=== PATIENT | male | born 1970 | race Caucasian/White ===

== ENCOUNTER 2019-07-21 19:17 | Emergency (ER) | payer OTHER ==
[2019-07-21 19:31] VITALS: BP 120/82; PULSE 91; TEMP 97.9; BMI 35.7
[2019-07-21] MEDS ORDERED: ACETAMINOPHEN 325 MG TABLET (FP) PO ONE (19:50)
[2019-07-21] MEDS ORDERED: DIPHTH,PERTUSS(ACELL),TET 0.5 ML DISP.SYRIN IM ONE ×2 (20:08→20:38)
--- NOTE | 2019-07-21 20:45 | PDOC ---
History of Present Illness - General Chief Complaint: Injury Stated Complaint: LAC Time Seen by Provider: 07/21/19 19:50 History Source: Patient - History of Present Illness Initial Comments: 07/21/19 21:05 Chief complaint: Finger laceration Patient 48-year-old male no medical problems who cut his right little finger with a mandolin. Patient does not know when his last tetanus was. Patient is not on any anticoagulation or any antiplatelet medication. GENERAL/CONSTITUTIONAL: No fever, weakness. dizziness HEAD, EYES, EARS, NOSE AND THROAT: No change in vision. No ear pain or discharge. No sore throat. CARDIOVASCULAR: No chest pain RESPIRATORY: No shortness of breath or cough GASTROINTESTINAL: No pain, nausea, vomiting, diarrhea or constipation GENITOURINARY: No dysuria MUSCULOSKELETAL: No neck or back pain SKIN: No rash, + finger laceration NEUROLOGIC: No headache, vertigo, loss of consciousness, or loss of sensation. GENERAL: The patient is awake, alert, and fully oriented, in no acute distress. HEAD: Normal with no signs of trauma. EYES: Pupils equal, round and reactive to light, sclera anicteric, conjunctiva clear. ENT: pharynx: no erythema, no exudate, uvula midline NECK: supple CHEST: No respiratory distress EXTREMITIES: Right little finger with skin avulsed on the distal phalanx on the outer aspect, not involving the joint, able to flex and extend, not involving the nail. Neurovascular intact. Rest of extremities, normal range of motion, no edema. NEUROLOGICAL: Normal speech, normal gait. SKIN: Warm, Dry Past History - Past Medical History Allergies/Adverse Reactions: Allergies Allergy/AdvReac Type Severity Reaction Status Date / Time ciprofloxacin [From Cipro] Allergy Verified 07/21/19 19:53 COPD: No HTN: Yes Hypercholesterolemia: Yes - Immunization History Td Vaccination: (UNKNOWN) Immunization Up to Date: No - Psycho Social/Smoking Cessation Hx Smoking History: Never smoked Hx Alcohol Use: No Drug/Substance Use Hx: No *Physical Exam - Vital Signs Last Vital Signs Temp Pulse Resp BP Pulse Ox 97.9 F 91 H 20 120/82 98 07/21/19 19:29 07/21/19 19:29 07/21/19 19:29 07/21/19 19:29 07/21/19 19:29 ED Treatment Course - Medications Given in the ED: ED Medications Discontinued Medications Generic Name Dose Route Start Last Admin Trade Name Little PRN Reason Stop Dose Admin Acetaminophen 650 mg 07/21/19 19:50 07/21/19 20:39 Tylenol - PO 07/21/19 19:51 650 mg ONCE ONE Administration Diphtheria/Tetanus/Acell Pertussis 0.5 ml 07/21/19 20:08 07/21/19 20:39 Boostrix - IM 07/21/19 20:09 0.5 ml .ONCE ONE Administration Medical Decision Making - Medical Decision Making 07/21/19 21:08 48-year-old male who avulsed skin from his right little finger using a mandolin. Not deep enough to involve the bone, superficial but bleeding. Not involving the joint or the nail. Wound cleaned, Surgicel applied, pressure applied and observed. Hemostasis achieved. Wound was wrapped and given instructions on how to take care of it at home. Recommended following up with hand surgeon for further evaluation if graft might be needed. Patient is a [facility] patient he will follow-up with [facility] and surgeon. Patient also needs tetanus update and will give Tylenol for pain Discussed issues, findings, results, applicable medications and treatments and follow-up. All these were understood and all questions were answered Discharge - Discharge Information Problems reviewed: Yes Clinical Impression/Diagnosis: Finger avulsion Qualifiers: Encounter type: initial encounter Qualified Code(s): S61.209A - Unspecified open wound of unspecified finger without damage to nail, initial encounter Condition: Stable Disposition: HOME - Admission No - Follow up/Referral Referrals: Prabhakar Arndt [Primary Care Provider] - Rashard Campbell MD [Non Staff, Medical] - - Patient Discharge Instructions Additional Instructions: Leave bandage on until Monday, if it starts oozing through, you can remove the outer layer as shown and rewrap it. If you have any problems, return to the ER for further evaluation. After you remove the bandage on Monday, you can gently take off the yellow Xeroform, then start applying bacitracin and a small bandage. Make an appointment with the [facility] hand surgeon for early this week for further evaluation and to see if there is any need for a graft. Also return to the ER if there is any fever redness or any other concerning findings. - Post Discharge Activity
== END 2019-07-21 20:48 | disposition home or self-care (01) ==
LOC: JERFT 19:17
PROC: 3E0234Z Introduction of Serum, Toxoid and Vaccine into Muscle, Percutaneous Approach (ICD-10-PCS; principal; 2019-07-21)
DX: S61.206A Unspecified open wound of right little finger without damage to nail, initial encounter (principal); W27.4XXA Contact with kitchen utensil, initial encounter; Y93.89 Activity, other specified; Y92.018 Other place in single-family (private) house as the place of occurrence of the external cause; Y99.8 Other external cause status
CPT/HCPCS: 90715; 99282-25